=== PATIENT | female | born 1960 | race African-American/Black ===

== ENCOUNTER 2019-02-04 09:55 | Inpatient (IN) | payer OTHER ==
[2019-02-04 10:47] VITALS: BMI 23.8
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
[2019-02-04] MEDS ORDERED: MENTHOL/PHENOL 1 EACH UD MM PRN (11:22)
[2019-02-04] MEDS ORDERED: cloNIDine HCL 0.1 MG TABLET PO PRN (11:22)
[2019-02-04] MEDS ORDERED: MAGNESIUM CITRATE 300 ML BOTTLE PO PRN (11:22)
[2019-02-04] MEDS ORDERED: METHOCARBAMOL 500 MG TABLET PO PRN (11:22)
[2019-02-04] MEDS ORDERED: BISMUTH SUBSALICYLATE 524 MG/30 ML UD PO PRN (11:22)
[2019-02-04] MEDS ORDERED: hydrOXYzine PAMOATE 25 MG CAPSULE (FP) PO PRN (11:22)
[2019-02-04] MEDS ORDERED: MAG HYDROX/AL HYDROX/SIMETH 30 ML UNIT-DOSE CUP PO PRN (11:22)
[2019-02-04] MEDS ORDERED: MAGNESIUM HYDROX 2400MG/30ML ORAL SUSPENSION 30 ML CUP PO PRN (11:22)
[2019-02-04] MEDS ORDERED: MELATONIN 5 MG TABLETS PO PRN (11:22)
[2019-02-04] MEDS ORDERED: ACETAMINOPHEN 325 MG TABLET (FP) PO PRN ×2 (11:22)
[2019-02-04] MEDS ORDERED: IBUPROFEN 400 MG TABLET (FP) PO PRN (11:22)
[2019-02-04] MEDS ORDERED: ALBUTEROL SO4 8 GM HFA INHALER IH PRN (11:26)
[2019-02-04] MEDS ORDERED: METHADONE HCL 10 MG TABLET (FOR DETOX USE ONLY) PO ONE (12:30)
[2019-02-04 15:52] LABS: HEMATOCRIT 36.5 % (32.4-45.2); HEMOGLOBIN 11.9 GM/dL (10.7-15.3); MCH 30.4 pg (25.7-33.7); MCHC 32.5 g/dl (32.0-36.0); MEAN CELL VOLUME 93.6 fl (80-96); MEAN PLT VOLUME 9.2 fl (7.5-11.1); PLATELET COUNT 207 K/MM3 (134-434); RDW 14.5 % (11.6-15.6); WHITE BLOOD COUNT 8.4 K/mm3 (4.0-10.0)
[2019-02-04 16:24] LABS: ALBUMIN 3.6 g/dl (3.4-5.0); BILIRUBIN,TOTAL 0.3 mg/dL (0.2-1); BLOOD UREA NITROGEN 9.8 mg/dL (7-18); CALCIUM 9.1 mg/dL (8.5-10.1); CREATININE 0.6 mg/dL (0.55-1.3); POTASSIUM 4.2 mmol/L (3.5-5.1)
[2019-02-04] MEDS: THIAMINE HCL 100 MG TABLET (FP) PO SCH (22:11)
--- NOTE | 2019-02-05 08:19 | CONSULT ---
[facility] Psychiatric Consult - Data Date of interview: 02/05/19 Psychiatric History: Patient was approached by her bedside. Told marketing copywriter:" I don' t need to talk to you. I'm ok"
[2019-02-05] MEDS ORDERED: METHADONE HCL 5 MG TABLET (FOR DETOX USE ONLY) ONE (09:20)
[2019-02-05] MEDS ORDERED: METHADONE HCL 10 MG TABLET (FOR DETOX USE ONLY) ONE (09:21)
[2019-02-05] MEDS ORDERED: PRENATAL VITAMINS W/ FOLIC ACID TABLET (FP) PO SCH (10:00)
[2019-02-05] MEDS ORDERED: METHADONE (DETOX) 20 MG, METHADONE (DETOX) 5 MG PO ONE (10:00)
[2019-02-05] MEDS ORDERED: diazePAM 5 MG TABLET PO PRN (11:57)
--- NOTE | 2019-02-05 11:58 | PN ---
[facility] COWS - Scale Resting Pulse: 1= [place] 81-100 Sweatin= Chills/Flushing Restless Observation: 1= Difficult to Sit Still Pupil Size: 0= Normal to Room Light Bone or Joint Aches: 2= Severe Diffuse Aches Runny Nose/ Eye Tearin= None GI Upset > 30mins: 0= None Tremor Observation of Outstretched Hands: 1= Tremor [place], Not Seen Yawning Observation: 1= 1-2x During Session Anxiety or Irritability: 2=Irritable/Anxious Goose Flesh Skin: 0=Smooth Skin COWS Score: 9 BHS Progress Note (SOAP) Subjective: sweats irritable agitation restless Objective: 02/05/19 11:58 Vital Signs Temperature 98.8 F 02/05/19 10:30 Pulse Rate 87 02/05/19 10:30 Respiratory Rate 16 02/05/19 10:30 Blood Pressure 104/54 L 02/05/19 10:30 O2 Sat by Pulse Oximetry (%) Laboratory Tests 02/04/19 02/04/19 02/04/19 10:53 11:00 11:00 WBC 8.4 RBC 3.90 Hgb 11.9 Hct 36.5 MCV 93.6 MCH 30.4 MCHC 32.5 RDW 14.5 Plt Count 207 MPV 9.2 Sodium 139 Potassium 4.2 Chloride 106 Carbon Dioxide 27 Anion Gap 6 L BUN 9.8 Creatinine 0.6 Est GFR (CKD-EPI)AfAm 118.09 Est GFR (CKD-EPI)NonAf 101.89 Random Glucose 89 Calcium 9.1 Total Bilirubin 0.3 AST 10 L ALT 12 L Alkaline Phosphatase 64 Total Protein 7.0 Albumin 3.6 POC Urine HCG, Qual Negative RPR Titer 02/04/19 11:00 WBC RBC Hgb Hct MCV MCH MCHC RDW Plt Count MPV Sodium Potassium Chloride Carbon Dioxide Anion Gap BUN Creatinine Est GFR (CKD-EPI)AfAm Est GFR (CKD-EPI)NonAf Random Glucose Calcium Total Bilirubin AST ALT Alkaline Phosphatase Total Protein Albumin POC Urine HCG, Qual RPR Titer Nonreactive labs noted [id number] ambulating no acute distress Assessment: 02/05/19 11:58 withdrawal sx Plan: continue detox valium prn x 3 days only pt made aware increase fluids
[2019-02-05] MEDS: THIAMINE HCL 100 MG TABLET (FP) PO SCH (22:20)
[2019-02-06 06:30] VITALS: BP 109/54; PULSE 57; TEMP 97.9
--- NOTE | 2019-02-06 09:37 | PN ---
[facility] Progress Note Note: pt slammed the door to her room and when approached pt screamed, yelled and states fuck you bitch get me the fuck out of here. I'm leaving now. Nursing, counseling and medical unable to re-direct pt, security was called and pt chose to leave AMA.
--- NOTE | 2019-02-06 09:38 | DS ---
[facility] Detox Discharge Summary Admission Date: 02/04/19 - History Present History: Opioid Dependence - Physical Exam Results Vital Signs: Vital Signs Temperature 97.9 F 02/06/19 06:29 Pulse Rate 57 L 02/06/19 06:29 Respiratory Rate 18 02/06/19 06:29 Blood Pressure 109/54 L 02/06/19 06:29 O2 Sat by Pulse Oximetry (%) - Treatment Hospital Course: Discharged Condition Good, Rehab Referral Accepted - Medication Discharge Medications: Ambulatory Orders Albuterol Sulfate Inhaler - [Ventolin Hfa Inhaler -] 1 puff IH PRN PRN 02/04/19 Meloxicam 7.5 mg PO BID 02/04/19 - Diagnosis (1) Arthritis Current Visit: Yes Status: Acute (2) Asthma Current Visit: Yes Status: Acute Qualifiers: Asthma severity: mild Asthma persistence: unspecified (3) Opioid dependence with withdrawal Current Visit: Yes Status: Chronic - AMA Did Patient Leave Against Medical Advice: Yes
[2019-02-06] MEDS ORDERED: METHADONE HCL 10 MG TABLET (FOR DETOX USE ONLY) PO ONE (10:00)
[2019-02-07] MEDS ORDERED: METHADONE (DETOX) 10 MG, METHADONE (DETOX) 5 MG PO ONE (10:00)
[2019-02-08] MEDS ORDERED: METHADONE HCL 10 MG TABLET (FOR DETOX USE ONLY) PO ONE (10:00)
[2019-02-09] MEDS ORDERED: METHADONE HCL 5 MG TABLET (FOR DETOX USE ONLY) PO ONE (06:00)
== END 2019-02-06 08:35 | disposition left against medical advice (07) | DRG 770 ==
LOC: YASAS 09:55 → Y6N 11:47
PROVIDERS: ADMIT Allergy & Immunology; ATTEND Allergy & Immunology
PROC: HZ2ZZZZ Detoxification Services for Substance Abuse Treatment (ICD-10-PCS; principal; 2019-02-04)
DX: F11.23 Opioid dependence with withdrawal (principal); F17.210 Nicotine dependence, cigarettes, uncomplicated; F32.9 Major depressive disorder, single episode, unspecified; J45.20 Mild intermittent asthma, uncomplicated; M12.9 Arthropathy, unspecified; E89.0 Postprocedural hypothyroidism; Z59.0 Homelessness
CPT/HCPCS: 36415; 80053; 81025; 85027; 86593